=== PATIENT | female | born 1990 | race Caucasian/White ===

== ENCOUNTER 2018-08-13 17:30 | Emergency (ER) | payer MEDICAID, SELFPAY ==
[2018-08-13 17:31] VITALS: BP 135/81; PULSE 97; RESP 18; TEMP 36.4; O2SAT 96; BMI 25.7
--- NOTE | 2018-08-13 17:40 | RAD_ITS ---
STUDY: X-RAY - RIGHT HAND REASON FOR EXAM: Female, 28 years old. Pain at the base of the thumb TECHNIQUE: 3 view(s) of the hand. COMPARISON: None. FINDINGS: Normal radiocarpal articulation. Normal distal radioulnar joint. Normal visualized carpal bones. Normal carpal articulations Normal carpometacarpal articulation of the thumb. Normal second through fifth carpometacarpal joints. Normal metacarpi. Normal metacarpophalangeal joint of the thumb. Normal interphalangeal joint of the thumb. Normal proximal and distal phalanges of the thumb. Normal metacarpophalangeal joints of the second through fifth fingers. Normal proximal and distal interphalangeal joints of the second through fifth fingers. Normal phalanges of the second through fifth fingers. The soft tissue structures are unremarkable. RAD/Hand Min 3 Views IMPRESSION: No acute findings Electronically Signed: Kirill Rowe MD at 18:06 EDT , Service support ,
--- NOTE | 2018-08-13 18:41 | ED.VISSUMM ---
- ER Visit Summary Date of Service: 08/13/18 Chief Complaint: Right thumb injury History of Present Illness: The patient is a 28 F who complains of right thumb pain after a friend fell on her hand yesterday. She is right-hand dominant. She is able to move her thumb but has increased pain with axial loading. She denies paresthesias. Physical Examination: Vital signs unremarkable. Right upper extremity examination significant for tenderness of the right thumb, worse at the MCP joint. There is mild edema. There is no obvious joint laxity on testing. She has normal cap refill and sensation distally. Full range of motion is noted. Test Results: Right hand x-rays are unremarkable. Emergency Department Course and Treatment: Patient was placed in a thumb spica Velcro splint. If not improved she is to follow-up with orthopedics. Treatment Plan: [] Disposition: Discharge Impression: Right thumb sprain This note was generated with [employer] dictation software. It may contain incorrect words, spelling, and punctuation that were not noted in review of the chart prior to signing ED Disposition - Plan for ED Patient: Chief Complaint: Upper Extremity Injury Referrals: Trevon Morales MD [Primary Care Provider] -
--- NOTE | 2018-08-13 18:42 | ED.DEP ---
ED Disposition - Plan for ED Patient: Disposition: Home or Assisted Living Chief Complaint: Upper Extremity Injury Instructions: ED Sprain Finger Referrals: Erwin Toledo DO [STAFF PHYSICIAN] - 10-14 Days if not better
== END 2018-08-13 18:59 | disposition home or self-care (01) ==
PROVIDERS: Emergency Provider Emergency Medicine; Family Provider Family Medicine; PCP Family Medicine
DX: S63.601A Unspecified sprain of right thumb, initial encounter (principal); Z79.51 Long term (current) use of inhaled steroids; W50.0XXA Accidental hit or strike by another person, initial encounter; Y93.89 Activity, other specified; Y92.89 Other specified places as the place of occurrence of the external cause; Y99.8 Other external cause status
CPT/HCPCS: 73130; 99282

== ENCOUNTER 2020-04-27 19:25 | Emergency (ER) | payer MEDICAID, SELFPAY ==
[2020-04-27 19:27] VITALS: BP 146/74; PULSE 112; RESP 14; TEMP 36.6; O2SAT 98; BMI 28.3
[2020-04-27 19:44] VITALS: TEMP 37.1
--- NOTE | 2020-04-27 20:08 | RAD_ITS ---
STUDY: X-RAY CHEST REASON FOR EXAM: Female, 30 years old. Cough. Sore throat. Sinus congestion. TECHNIQUE: Single AP portable view of the chest. COMPARISON: October 08, 2014. FINDINGS: The lungs are well-expanded. There is patchy infiltrate in the left lung base. The lungs appear otherwise clear. There is no demonstrated pleural abnormality. Normal size heart. Normal mediastinum and ilan. Normal visualized pulmonary arteries. Normal visualized aortic arch and descending thoracic aorta. Normal visualized thoracic spine. Normal visualized ribs, clavicles, and shoulders. There is no demonstrated abnormality of the visualized soft tissue structures of the upper abdomen. RAD/Chest 1 View (Portable) IMPRESSION: Left lower lobe infiltrate. Electronically Signed: Colin Veras DO at 20:29 EDT Tel [phone], Service support ,
[2020-04-27 20:35] LABS: Absolute Lymphocyte Count 0.93 X10^3/uL (0.83-4.51); Basophil# 0.02 X10^3/uL; Basophil% 0.1 % (0-1); Hematocrit 42.9 % (37-47); Hemoglobin 13.9 g/dL (12.0-15.0); Lymphocyte # 0.93 X10^3/ul (4.0); Lymphocyte % 6.6 % (19-41); Mean Corp Hgb Conc 32.4 g/dL (32-36); Mean Corpuscular Hgb 27.5 pg (27.0-32.0); Mean Platelet Vol. 9.6 fl (6.2-12.0); Monocyte# 1.03 X10^3/uL; Monocyte% 7.4 % (0-10); NRBC Flagged by Analyzer 0 % (0-5); Neutrophil # 11.96 X10^3/uL (2.7-7.7); Neutrophil % 85.5 % (47-70); Platelet Count 326 K/mm3 (150-450); RBC Distribution Width SD 40.5 fl (35.1-43.9); Red Blood Count 5.05 M/mm3 (4.2-5.4)
--- NOTE | 2020-04-27 20:43 | ED.VIS.GEN ---
History of Present Illness Chief Complaint: Cough Detail of Chief Complaint: Cough, rhinorrhea and sore throat Informant: Patient, Significant Other Onset: - April 25 Context: Sudden Onset Timing: Continuous Quality: Upper respiratory with cough and congestion Location: Upper respiratory Current Severity: Mild Maximum Severity: Moderate Worsened by: Nothing Relieved by: Nothing Associated Symptoms: Upper respiratory Narrative: Patient is a 30-year-old who went out this past weekend to family gatherings. She did not wear a mask. She is unaware of anyone that was COVID positive. She presents with documented temperature to 100.8, rhinorrhea, congestion and cough. She complains of aches as well as mild headache. She denies photophobia, neck pain or neck stiffness. She denies chest pain. She denies nausea, vomiting or diarrhea. She denies joint swelling or pain. She denies dysuria, frequency, urgency or hematuria. She denies paresthesia, anesthesia motor aches. She denies discoloration of her extremities. She is a smoker. She does admit to drinking. Prior similar symptoms: No Recent Illness/Hospitalization: No - Past Medical History (1) No significant past medical history Status: Acute Past Medical History - Allergies and Home Meds Allergies/Adverse Reactions: Allergies hydrocodone bitartrate [From Vicodin] Allergy (Severe, Verified 04/27/20 19:27) Hives promethazine HCl [From Phenergan] Allergy (Severe, Verified 04/27/20 19:27) Swelling codeine Allergy (Mild, Verified 04/27/20 19:27) heart palpations NUTS Allergy (Severe, Uncoded 04/27/20 19:27) Anaphylaxis Primary Care Physician: Trevon Morales MD [Primary Care Provider] - Prior records reviewed: Yes Past Medical History: None Surgical History: noncontributory Lives: Spouse/ Significant Other Smoking Status: Current every day smoker Alcohol: Rare Drugs: None Review of Systems General: Reports: Chills, Fever, Malaise. Denies: Subjective, Sweats Eyes: Denies: Visual changes - bilaterally, Blurred Vision - bilaterally ENT: Reports: Rhinorrhea, Sore throat. Denies: Bilateral ear pain Cardiovascular: Denies: Chest pain, Palpitations, Heart racing Respiratory: Reports: Cough. Denies: Dyspnea, Sputum, Dyspnea on exertion Gastrointestinal: Denies: Abdominal pain, Nausea, Vomiting, Diarrhea, Melena, Hematochezia Genitourinary: Denies: Dysuria, Hematuria, Frequency Musculoskeletal: Reports: Myalgias. Denies: Arthralgias, Neck pain, Back pain, Swelling, Extremity Pain, -, - Skin: Denies: Rash, Wounds Neurological: Denies: Headache, Weakness, Numbness Endocrine: Denies: Polyuria, Polydipsia Hematologic: Denies: Easy bruising, Easy bleeding Physical Exam Vital Signs/Narrative: Vital Signs Temp Pulse Resp BP Pulse Ox 04/27/20 19:44 98.7 F 04/27/20 19:27 97.8 F 112 H 14 146/74 H 98 Inital Vital Signs reviewed: Yes General: Well nourished, Well developed, No Acute Distress Head: Normocephalic, Atraumatic Eyes: Perrl, EOMI. Negative for: Pale conjunctiva, Scleral icterus ENT: Moist mucous membranes, TM's clear, Nasal congestion. Negative for: Sinus tenderness Neck: Supple, Nontender Cardiovascular: Regular rate, Regular rhythm, No murmurs, Normal S1, Normal S2 Respiratory: No distress, CTA bilaterally, Chest nontender Abdomen: Soft, Nontender, Nondistended, Normal bowel sounds Back: Nontender, Normal Inspection Extremities: Nontender, No edema Skin: Normal color, No rash Neurological: Alert, Oriented x3, Cranial nerves II-XII grossly intact, Normal Strength, Normal Sensation Psychological: Normal affect, Normal Mood Diagnostic/Tx/Re-eval Chest X-Ray - ED: 1 View, Read by ED Physician, Normal, Heart, Lungs, Mediastinum, Bony Structures, No Acute Disease, - - Interpreted by me at 2019 Impressions Chest X-Ray 04/27/20 20:08 IMPRESSION: Left lower lobe infiltrate. Electronically Signed: Colin Veras DO at 20:29 EDT Tel [phone], Service support , 04/27/20 20:08 Chest 1 View (Portable) [RAD] Stat Laboratory Results 04/27/20 04/27/20 20:00 20:00 WBC 14.0 H RBC 5.05 Hgb 13.9 Hct 42.9 MCV 85.0 MCH 27.5 MCHC 32.4 RDW Std Deviation 40.5 RDW Coeff of Gladis 13.0 Plt Count 326 MPV 9.6 Immature Gran % (Auto) 0.400 Neut % (Auto) 85.5 H Lymph % (Auto) 6.6 L Alexander % (Auto) 7.4 Eos % (Auto) 0.0 Baso % (Auto) 0.1 Absolute Neuts (auto) 12.0 H Absolute Lymphs (auto) 0.93 Nucleated RBC % 0 Sodium 136 Potassium 3.3 L Chloride 105 Carbon Dioxide 23.0 Anion Gap 8 BUN 6 L Creatinine 0.75 Estim Creat Clear Calc 106.66 Est GFR (MDRD) Af Amer 117 Est GFR (MDRD) Non-Af 97 BUN/Creatinine Ratio 8.0 L Glucose 136 H Calcium 8.8 Total Bilirubin 0.40 AST 9 L ALT 17 Alkaline Phosphatase 90 Total Protein 7.8 Albumin 3.2 Globulin 4.6 H Albumin/Globulin Ratio 0.7 L X-ray and laboratory tests are unremarkable. Blood sugar slightly up at 136. COVID test is pending. Patient was discharged to home with appropriate home-going instructions. - Medical Decision Making Diagnosis includes viral upper restaurant infection, COVID infection, pneumonia. Will obtain chest x-ray and appropriate blood work including test for COVID. ED Disposition - Plan for ED Patient: Disposition: Home or Assisted Living Diagnosis: Suspected COVID-19 virus infection Instructions: ED Upper Resp Infec No Abx Tx Referrals: Trevon Morales MD [Primary Care Provider] - As Needed Additional Instructions: Your COVID test should be completed early tomorrow morning. If test is positive you will be notified. Self quarantine until you are informed of your results. It is in your best interest to stop smoking. It is also in your best interest to wear a mask when you go outside.
[2020-04-27 20:55] LABS: ALB/GLOB Ratio 0.7 RATIO (0.9-2.4); AST(SGOT) 9 U/L (15-37); Alanine Aminotransfer ALT/SGPT 17 U/L (13-56); Albumin, Serum 3.2 g/dL (3.2-5.0); Alkaline Phosphatase 90 U/L (45-117); Anion Gap 8 (5-15); BUN 6 mg/dL (7-18); Calcium,Total 8.8 mg/dL (8.5-10.1); Chloride 105 mmol/L (98-107); Creatinine, Serum 0.75 mg/dL (0.55-1.02); EST Glomerular Filtration Rate 97 mL/min (>60); Est Glom Filt Rate - Afr Amer 117 mL/min (>60); Estimated Creatinine Clearance 106.66 ml/min; Globulin 4.6 g/dL (2.2-4.2); Glucose 136 mg/dL (74-106); Potassium 3.3 mmol/L (3.5-5.1); Protein, Total 7.8 g/dL (6.4-8.2); Sodium Level 136 mmol/L (136-145)
[2020-04-27 21:02] LABS: Lactic Acid 0.7 mmol/L (0.4-1.9)
--- NOTE | 2020-04-27 21:49 | ED.VISSUMM ---
- ER Visit Summary Date of Service: 04/27/20 Chief Complaint: [] History of Present Illness: The patient is a 30 F [] Physical Examination: [] Test Results: [] Emergency Department Course and Treatment: [] Treatment Plan: [] Disposition: [] Impression: [] This note was generated with [employer] dictation software. It may contain incorrect words, spelling, and punctuation that were not noted in review of the chart prior to signing ED Disposition - Plan for ED Patient: Disposition: Home or Assisted Living Diagnosis: Suspected COVID-19 virus infection, Pneumonia, community acquired Instructions: ED PNEUMONITIS Adult Prescriptions: Doxycycline 100 mg PO BID #14 cap Transmission Status: Pending to [facility] #30 Referrals: Trevon Morales MD [Primary Care Provider] - 3-5 Days Additional Instructions: Chest x-ray does reveal a pneumonia on the left side. Take antibiotics until gone. If you develop trouble breathing or have difficulty breathing return to the emergency department. Your COVID test should be completed early tomorrow morning. If test is positive you will be notified. Self quarantine until you are informed of your results. It is in your best interest to stop smoking. It is also in your best interest to wear a mask when you go outside.
[2020-04-27 22:00] VITALS: BP 127/70; PULSE 119; RESP 20; TEMP 37.2; O2SAT 99
[2020-04-27] MEDS: Doxycycline 100 MG CAPSULE PO (22:18)
--- NOTE | 2020-04-28 07:15 | ED.RN ---
PT NOTIFIED THAT COVID WAS NEGATIVE AND RHINOVIRUS WAS POSITIVE. INFORMED PER TO CONTINUE COURSE OF DOXYCYCLINE. PT VERBALIZED UNDERSTANDING OF RESULTS AND NO FURTHER QUESTIONS.
== END 2020-04-27 22:22 | disposition home or self-care (01) ==
PROVIDERS: Emergency Provider Emergency Medicine; PCP Family Medicine
DX: J18.9 Pneumonia, unspecified organism (principal); F17.200 Nicotine dependence, unspecified, uncomplicated; Z20.828 Contact with and (suspected) exposure to other viral communicable diseases
CPT/HCPCS: 36415; 71045; 80053; 83605; 85025; 87040; 87633; 87635; 94799; 99285; G2023; A4216; U0003

== ENCOUNTER 2020-09-30 21:55 | Emergency (ER) | payer MEDICAID, SELFPAY ==
[2020-09-30 21:56] VITALS: BP 141/78; PULSE 94; RESP 18; TEMP 36.1; O2SAT 100; BMI 26.6
[2020-09-30] MEDS: 0.9% Normal Saline 1,000 ML 999 ML IV (23:39)
[2020-09-30] MEDS: DiphenhydrAMINE 50 MG/ML Syringe 25 MG IV (23:39)
[2020-09-30] MEDS: Metoclopramide 10 MG/2 ML Vial IV (23:39)
[2020-09-30] MEDS: Ketorolac 30 MG/ML Syringe IV (23:39)
--- NOTE | 2020-10-01 00:34 | ED.VIS.GEN ---
History of Present Illness Chief Complaint: Headache Informant: Patient Onset: Today Context: Gradual Onset Current Severity: Moderate Maximum Severity: Moderate Narrative: Patient presents with migraine headache this started around 6 PM last evening. She states it was a gradual onset. She tried her amitriptyline and Fioricet without improvement. She does have light sensitivity. She denies vision change or vomiting. She denies recent head injury. She does have a history of similar headaches. - Past Medical History (1) Asthma Status: Chronic (2) Migraines Status: Chronic Past Medical History - Allergies and Home Meds Allergies/Adverse Reactions: Allergies hydrocodone bitartrate [From Vicodin] Allergy (Severe, Verified 04/27/20 19:27) Hives promethazine HCl [From Phenergan] Allergy (Severe, Verified 04/27/20 19:27) Swelling codeine Allergy (Mild, Verified 04/27/20 19:27) heart palpations NUTS Allergy (Severe, Uncoded 04/27/20 19:27) Anaphylaxis Primary Care Physician: Trevon Morales MD [Primary Care Provider] - Prior records reviewed: Yes Surgical History: noncontributory Lives: With Family Smoking Status: Current every day smoker Review of Systems General: Denies: Chills, Fever Eyes: Denies: Visual changes - bilaterally ENT: Denies: Bilateral ear pain Cardiovascular: Denies: Chest pain Respiratory: Denies: Dyspnea, Cough Gastrointestinal: Denies: Abdominal pain, Nausea, Vomiting Neurological: Reports: Headache. Denies: Weakness, Parasthesia Hematologic: Denies: Easy bruising, Easy bleeding Allergy: Denies: Uticaria Physical Exam Vital Signs/Narrative: Vital Signs Temp Pulse Resp BP Pulse Ox 09/30/20 21:56 97 F L 94 18 141/78 H 100 Inital Vital Signs reviewed: Yes General: Well nourished, Well developed Head: Normocephalic ENT: Moist mucous membranes Neck: Supple Cardiovascular: Regular rate, Regular rhythm Respiratory: No distress, CTA bilaterally Abdomen: Soft, Nontender Back: Nontender Extremities: Nontender Skin: Normal color, No rash Neurological: Alert, Oriented x3, Normal Strength, Normal Sensation Psychological: Normal affect Diagnostic/Tx/Re-eval - Medical Decision Making Patient was given Toradol, Reglan, Benadryl, and IV fluids. On repeat evaluation headache is significantly improved. She will be discharged home with family this time. ED Disposition - Plan for ED Patient: Disposition: Home or Assisted Living Diagnosis: Migraine Instructions: ED, Migraine (Classical) Referrals: Trevon Morales MD [Primary Care Provider] - 3-5 Days if not improving
[2020-10-01 00:44] VITALS: BP 126/51; PULSE 77; RESP 15; O2SAT 99
== END 2020-10-01 00:46 | disposition home or self-care (01) ==
PROVIDERS: Emergency Provider Emergency Medicine; PCP Family Medicine
DX: G43.909 Migraine, unspecified, not intractable, without status migrainosus (principal); J45.909 Unspecified asthma, uncomplicated; Z79.51 Long term (current) use of inhaled steroids; F17.200 Nicotine dependence, unspecified, uncomplicated
CPT/HCPCS: 96361; 96374; 96375; 99283; J7030; A4216

== ENCOUNTER 2021-10-16 22:21 | Inpatient (IN) | payer MEDICAID, SELFPAY ==
[2021-10-16] VITALS (10 sets, daily range): BP systolic 119–161; BP diastolic 63–91; PULSE 90–113; TEMP 37.4; O2SAT 98–99; BMI 33.4
[2021-10-16] MEDS: Lactated Ringers 1,000 ML 50 ML IV (22:35)
[2021-10-16 22:52] LABS: Absolute Lymphocyte Count 1.44 X10^3/uL (0.83-4.51); Absolute Neutrophil Count 16.5 X10^3/uL (2.0-7.7); Basophil# 0.03 X10^3/uL; Basophil% 0.2 % (0-1); Eosinophil# 0.02 X10^3/uL; Eosinophils% 0.1 % (0-5); Hematocrit 41.9 % (37-47); Hemoglobin 13.7 g/dL (12.0-15.0); Lymphocyte # 1.44 X10^3/ul (0.83-4.51); Lymphocyte % 7.3 % (19-41); Mean Corp Hgb Conc 32.7 g/dL (32-36); Mean Corpuscular Hgb 26.3 pg (27.0-32.0); Mean Corpuscular Volume 80.4 fL (81-99); Mean Platelet Vol. 9.1 fl (6.2-12.0); Monocyte# 1.53 X10^3/uL; Monocyte% 7.8 % (0-10); NRBC Flagged by Analyzer 0 % (0-5); Neutrophil # 16.52 X10^3/uL (2.7-7.7); Neutrophil % 84.1 % (47-70); POSITIVE DIFFERENTIAL YES; Platelet Count 353 K/mm3 (150-450); RBC Distribution Width CV 13.7 % (11.6-14.6); RBC Distribution Width SD 39.5 fl (35.1-43.9); Red Blood Count 5.21 M/mm3 (4.2-5.4); White Blood Count 19.6 K/mm3 (4.4-11.0)
[2021-10-16 22:55] LABS: Differential Indicated SCAN CRITERIA MET
[2021-10-16] MEDS: Oxytocin 30 units/NS 500 ml 30 UNITS/500 ML IV.SOLN 334 UNITS IV (22:56)
--- NOTE | 2021-10-16 23:05 | PCM.HP.OB ---
HPI - General General Date of Admission: 10/16/21 HPI Narrative URMILA LEACH, is a 31 F who presents at 38w1d in active labor. Upon arrival increased pain with contractions. complicated by chronic HTN well controlled without medication. Maternal Data Information TAD Calculator Estimated Delivery Date Method Current WG Current Estimate 10/29/21 Manual 38w 1d PFSH PFSH Home Medications albuterol sulfate [Ventolin HFA] 1 - 2 puff INHALATION Q6H PRN PRN 01/07/17 [History Last Taken Unknown] amitriptyline 25 mg PO QHS 09/30/20 [History Last Taken Unknown] [id number] 1 ea PO QHS 09/30/20 [History Last Taken Unknown] Allergy/AdvReac Type Severity Reaction Status Date / Time hydrocodone bitartrate Allergy Severe Hives Verified 10/16/21 22:46 [From Vicodin] promethazine HCl Allergy Severe Swelling Verified 10/16/21 22:46 [From Phenergan] codeine Allergy Mild heart Verified 10/16/21 22:46 palpations NUTS Allergy Severe Anaphylaxis Uncoded 10/15/21 18:08 Social History Smoking Status: Current every day smoker History Elective abortions Hx Para 1 Spontaneous abortions Hx # Term Pregnancies Ectopic pregnancies Hx # Pregnancies Multiple births # of living children Vital Signs Vital Signs Vital Signs: 10/16/21 22:30 10/16/21 22:35 10/16/21 22:40 Pulse Rate 99 109 H 106 H Blood Pressure BP Systolic BP Diastolic Pulse Ox 99 99 99 10/16/21 22:42 10/16/21 22:59 Pulse Rate 113 H 96 Blood Pressure 161/91 H 141/77 H BP Systolic 161 141 BP Diastolic 91 77 Pulse Ox Labs Labs Labs: Blood Type O POSITIVE Antibody Screen NEGATIVE Hct 41.9 % (37-47) Hgb 13.7 g/dL (12.0-15.0) Rhogam given: No GBS positive RPR negative Rubella Immune HBsAG negative HepC negative HIV nonreactive GC/CT negative Assessment & Plan (1) Active labor at term: (2) Chronic hypertension: (3) Asthma: (4) Migraines: PLAN: 1) Admit to labor and delivery 2) Routine labs 3) Continuous EFM 4) GBS prophylaxis 5) COVID screen 6) notified of admission
--- NOTE | 2021-10-16 23:05 | EX.PCM.OBRPT ---
Assessment & Plan (1) Vaginal delivery: (2) Precipitous delivery: Maternal Data Information TAD Calculator Estimated Delivery Date Method Current WG Current Estimate 10/29/21 Manual 38w 1d Vaginal Delivery Maternal Presentation Maternal Presentation: Active Labor and Spontaneous Rupture of Membranes Operative Information Date of Procedure: 10/16/21 Pre-Operative Diagnosis: Active labor Post-Operative Diagnosis: Surgery / Procedure Performed: Spontaneous Vaginal Delivery Type of Anesthesia: None Estimated Blood Loss: 350 ml Time of Delivery: 22:50 Findings Description of Procedure: Upon arrival, cervical exam anterior lip and strong urge to push. of viable female infant over intact perineum. APGARS 7,9. Infant head delivered with CAN x1, delivered through and body immediately forthcoming. placed on maternal abdomen, strong cry, mouth and nose suctioned for secretions. Pitocin started for active 3rd stage management. Placenta delivered via card, intact, 3 vessel cord. Perineum inspected and revealed intact. Vaginal sweep completed. Fundus firm, EBL 350ml. Sponge and instrument count correct. Mom and baby stable. Family bonding well. notified of delivery. Presentation: Vertex and DEBBIE Amniotic Fluid Description: Clear Placental Delivery Description: Spontaneous Placenta Disposition: [facility] Cord Vessel Description: 3 Vessels Cord Entanglement: Around neck x 1, loose Nuchal Cord Compression: Without compression A Gender: Female (1 minute): 7 (5 minute): 9 Delayed Cord Clamping: Yes Post Vaginal Delivery Medications Given After Delivery: IV Pitocin Complication Complications: None
[2021-10-16 23:31] LABS: Differential Comment SCANNED
[2021-10-16] MEDS: Ibuprofen 600 MG Tablet PO (23:42)
[2021-10-17] VITALS (15 sets, daily range): BP systolic 108–128; BP diastolic 57–69; PULSE 73–97; RESP 16–18; TEMP 36.2–36.7; O2SAT 97–98
--- NOTE | 2021-10-17 06:15 | NURSING ---
late entry due to unit emergency: Doyle Jimenez RN assuming care of pt at 1159
[2021-10-17 07:03] LABS: Hematocrit 39.8 % (37-47); Hemoglobin 12.9 g/dL (12.0-15.0); Mean Corp Hgb Conc 32.4 g/dL (32-36); Mean Corpuscular Hgb 26.2 pg (27.0-32.0); Mean Corpuscular Volume 80.9 fL (81-99); Mean Platelet Vol. 9.3 fl (6.2-12.0); Platelet Count 320 K/mm3 (150-450); RBC Distribution Width CV 13.6 % (11.6-14.6); RBC Distribution Width SD 39.8 fl (35.1-43.9); Red Blood Count 4.92 M/mm3 (4.2-5.4); White Blood Count 23.6 K/mm3 (4.4-11.0)
[2021-10-17] MEDS: Acetaminophen 500 MG Tablet 1000 MG PO (08:19)
[2021-10-17] MEDS: Ibuprofen 600 MG Tablet PO ×2 (10:30→16:31)
--- NOTE | 2021-10-17 11:39 | PN.OBGYN_ITS ---
Subjective Subjective Doing well per patient and nursing staff. Ambulating and taking PO without difficulty. Voiding and passing flatus. Pain controlled. , services for assistance. Denies headache, visual changes, chest pain, shortness of breath, leg pain or increased bleeding. Lochia normal. Objective Data Objective Data Vital Signs: Vital Signs Temp Pulse Resp BP Pulse Ox 97.6 F L 80 16 121/68 H 98 10/17/21 08:12 10/17/21 08:12 10/17/21 08:12 10/17/21 08:12 10/16/21 23:15 Oxygen Delivery Method Room Air Weight: 207 lb 3.752 oz Body Mass Index (BMI) 33.4 Intake & Output: Intake and Output for Last 24 Hours 10/15/21 10/16/21 10/17/21 23:59 23:59 23:59 Intake Total 437.57 / 437.57 333 / 333 Balance 437.57 / 437.57 333 / 333 Lab / Micro Data Result Diagrams: 10/17/21 06:42 Labs: Laboratory Results - last 24 hr 10/16/21 22:35: WBC 19.6 H, RBC 5.21, Hgb 13.7, Hct 41.9, MCV 80.4 L, MCH 26.3 L , MCHC 32.7, RDW Std Deviation 39.5, RDW Coeff of Gladis 13.7, Plt Count 353, MPV 9.1, Immature Gran % (Auto) 0.500, Neut % (Auto) 84.1 H, Lymph % (Auto) 7.3 L, [place] % (Auto) 7.8, Eos % (Auto) 0.1, Baso % (Auto) 0.2, Absolute Neuts (auto) 16.5 H, Absolute Lymphs (auto) 1.44, Nucleated RBC % 0, Differential Comment SCANNED, Diff Path Review February10/16/21 22:35: Blood Type O POSITIVE, Antibody Screen NEGATIVE 10/17/21 06:42: WBC 23.6 H, RBC 4.92, Hgb 12.9, Hct 39.8, MCV 80.9 L, MCH 26.2 L , MCHC 32.4, RDW Std Deviation 39.8, RDW Coeff of Glaids 13.6, Plt Count 320, MPV 9.3 Micro: Microbiology 10/16/21 23:25 Nasal Secretion SARS-CoV-2 Antigen (Rapid) - Final ROS Constitutional Constitutional: Reports systems reviewed and no addt'l complaints, except as documented; Denies headache(s) Eyes Eyes: Denies acute decrease in peripheral vision, blurry vision or change in vision ENT HEENT: Reports systems reviewed and no addt'l complaints, except as documented Cardiovascular Cardiovascular: Denies chest pain or dizziness Respiratory/Chest Respiratory/Chest: Denies cough, dyspnea, dyspnea on exertion, shortness of breath at rest or shortness of breath with exertion Gastrointestinal Gastrointestinal: Denies abdominal pain, diarrhea, nausea or vomiting Genitourinary Genitourinary: Denies abdominal discomfort Musculoskeletal Musculoskeletal: Denies limited range of motion Integumentary Integumentary: Reports systems reviewed and no addt'l complaints, except as documented Neurologic Neurologic: Reports systems reviewed and no addt'l complaints, except as documented Psychiatric Psychiatric: Reports systems reviewed and no addt'l complaints, except as d ocumented Endocrine Endocrinology: Reports systems reviewed and no addt'l complaints, except as documented Hematologic/Lymphatic Hematologic/Lymphatic: Reports systems reviewed and no addt'l complaints, except as documented Allergic/Immunologic Allergic/Immunologic: Reports systems reviewed and no addt'l complaints, except as documented Physical Exam Const alert and oriented x3 General Appearance: cooperative Orientation / Consciousness: awake, oriented to person, oriented to place and oriented to time Exam Limitations: no limitations HEENT normocephalic Head and Scalp: normal to inspection, normocephalic and atraumatic Face and Sinus: normal facial exam Eyes General Eye: normal appearance of both eyes Neck full ROM Chest Chest: symmetrical chest wall rise Resp normal respiratory effort and normal air movement Auscultation: clear to auscultation bilaterally Cardio regular rate, regular rhythm, S1 normal heart sound, S2 normal heart sound, no murmurs, no rub, no gallops and no clicks GI normal to inspection, nondistended, normoactive bowel sounds and non-tender appearance of the vagina normal Narrative: fundus firm 2 below U Bladder / Kidney Exam: no CVA tenderness Back/Spine normal ROM Extremity normal to inspection and full ROM Extremity Narrative: Hortencia's negative bilaterally Skin no rashes or lesions noted Neuro oriented x3, CN's II-XII intact bilaterally and moves all extremities Sensorium / Orientation: awake, alert and oriented to person Motor Exam: clonus absent Deep Tendon Reflexes: Rt Patellar (L4): 2+ and Lt Patellar (L4): 2+ Assessment & Plan (1) Asthma: (2) Vaginal delivery: COMMENT: PPD #1 (3) Precipitous delivery: (4) Chronic hypertension: PLAN: 1) Routine PP Care 2) H&H stable 3) BP normal, no signs of preeclampsia 4) Pain management 5) Planning D/C home tomorrow
--- NOTE | 2021-10-17 12:19 | OB.TRI.PN_ITS ---
Progress Notes Date of Service: 10/15/21 Progress Note: Presented to labor and delivery for leakage of fluid and possible rupture of membranes. No contractions. Laboratory Studies: Laboratory Tests 10/17/21 10/16/21 10/16/21 Range/Units 06:42 22:35 22:35 WBC 23.6 H 19.6 H (4.4-11.0) K/mm3 RBC 4.92 5.21 (4.2-5.4) M/mm3 Hgb 12.9 13.7 (12.0-15.0) g/dL Hct 39.8 41.9 (37-47) % MCV 80.9 L 80.4 L (81-99) fL MCH 26.2 L 26.3 L (27.0-32.0) pg MCHC 32.4 32.7 (32-36) g/dL RDW Std Deviation 39.8 39.5 (35.1-43.9) fl RDW Coeff of Gladis 13.6 13.7 (11.6-14.6) % Plt Count 320 353 (150-450) K/mm3 MPV 9.3 9.1 (6.2-12.0) fl Immature Gran % (Auto) 0.500 (0.0-0.9) % Neut % (Auto) 84.1 H (47-70) % Lymph % (Auto) 7.3 L (19-41) % [place] % (Auto) 7.8 (0-10) % Eos % (Auto) 0.1 (0-5) % Baso % (Auto) 0.2 (0-1) % Absolute Neuts (auto) 16.5 H (2.0-7.7) X10^3/uL Absolute Lymphs (auto) 1.44 (0.83-4.51) X10^3/uL Nucleated RBC % 0 (0-5) % Differential Comment SCANNED Diff Path Review May foll Blood Type O POSITIVE Antibody Screen NEGATIVE Assessment & Plan (1) Vaginal discharge: (2) False labor: PLAN: ROM plus negative D/C home
[2021-10-18 02:13] VITALS: BP 114/55; PULSE 72; RESP 16; TEMP 36.8; O2SAT 97
[2021-10-18] MEDS: Ibuprofen 600 MG Tablet PO (02:18)
[2021-10-18] MEDS: Acetaminophen 500 MG Tablet 1000 MG PO (05:11)
[2021-10-18 08:00] VITALS: BP 118/61; PULSE 85; RESP 14; TEMP 36.1; O2SAT 96
--- NOTE | 2021-10-18 08:13 | PCM.PN.OB ---
Subjective Subjective Patient seen at bedside. Feeling good. Denies any pain. Ambulating and voiding without difficulty. Both breast and bottle feeding. Denies any headache, vision changes, SOB or CP. Desires discharge home today. Objective Data Objective Data Vital Signs: Vital Signs Temp Pulse Resp BP Pulse Ox 98.2 F 72 16 114/55 L 97 10/18/21 02:13 10/18/21 02:13 10/18/21 02:13 10/18/21 02:13 10/18/21 02:13 Oxygen Delivery Method Room Air Weight: 207 lb 3.752 oz Body Mass Index (BMI) 33.4 Intake & Output: Intake and Output for Last 24 Hours 10/16/21 10/17/21 10/18/21 23:59 23:59 23:59 Intake Total 437.57 / 437.57 333 / 333 Balance 437.57 / 437.57 333 / 333 Lab / Micro Data Result Diagrams: 10/17/21 06:42 Micro: Microbiology 10/16/21 23:25 Nasal Secretion SARS-CoV-2 Antigen (Rapid) - Final ROS Eyes Eyes: Denies blurry vision, change in vision or spots in vision ENT HEENT: Denies dizziness or headache(s) Cardiovascular Cardiovascular: Denies abdominal pain, chest pain or dyspnea Respiratory/Chest Respiratory/Chest: Denies cough, dyspnea, shortness of breath at rest or shortness of breath with exertion Gastrointestinal Gastrointestinal: Denies abdominal pain, diarrhea or vomiting Genitourinary Genitourinary: Denies change in urinary stream, difficulty urinating or dysuria Musculoskeletal Musculoskeletal: Reports none Integumentary Integumentary: Denies rash Neurologic Neurologic: Denies dizziness, headache(s), memory loss or weakness Physical Exam Const alert and no apparent distress General Appearance: cooperative and comfortable Exam Limitations: no limitations HEENT normocephalic Eyes General Eye: normal appearance of both eyes Neck full ROM General: normal visual inspection Chest Chest: symmetrical chest wall rise Resp normal respiratory effort and normal air movement Effort and Inspection: symmetric chest movement Auscultation: clear to auscultation bilaterally Cardio regular rate and regular rhythm GI normal to inspection, nondistended, normoactive bowel sounds Back/Spine normal ROM Extremity full ROM and no calf tenderness General Extremity: normal exam except as noted Skin no rashes or lesions noted Neuro CN's II-XII intact bilaterally Psych mental status grossly normal Assessment & Plan (1) Precipitous delivery: (2) Vaginal delivery: COMMENT: PPD #1 PLAN: PPD 2 Routine care Pain control D/C home with follow up in office
--- NOTE | 2021-10-18 08:16 | PCM.DC ---
Discharge Instructions Diet Discharge Diet: No restrictions Activity May resume sexual activity in: 6-8 weeks Weight Bearing Status: Weight bearing as tolerated Dressing / Incision Call your doctor if you observe: Fever of 101 or Higher, Inability to urinate, Using more than 1 pad per hour, Shortness of breath, Chest pain, Calf discomfort and Uncontrolled pain Follow Up Care When: 2 weeks virtual visit/ 6 weeks in office Test Results: Test results from this visit will be discussed in further detail at your follow-up appointment, if applicable. Discharge Plan Admission Admit Date/Time: 10/16/21 22:21 Primary Reason for Your Visit: Labor and delivery Attending Provider: Nichole Campos Primary Care Provider: Trevon Morales Discharge Orders/Prescriptions Prescriptions: Continued [id number] 1 mg Tablet 1 tab PO DAILY RF: 0 Discontinued aspirin 81 mg Capsule 81 mg PO DAILY RF: 0 famotidine [Pepcid] 20 mg Tablet 20 mg PO BID RF: 0 Referrals / Follow Up: Trevon Morales MD [Primary Care Provider] - Disposition Disposition (needs filled in before D/C Order can be placed): Home, Self Care
[2021-10-19 10:46] LABS: Pathologist Review Reviewed
== END 2021-10-18 11:55 | disposition home or self-care (01) | DRG 560 ==
LOC: WPOUT 22:22 → WP 22:23 → WPOUT 22:35 → WP 22:35
PROVIDERS: Admitting Provider Advanced Practice Midwife; PCP Family Medicine; Visit Provider Advanced Practice Midwife
DX: O42.92 Full-term premature rupture of membranes, unspecified as to length of time between rupture and onset of labor (principal); Z37.0 Single live birth; O10.92 Unspecified pre-existing hypertension complicating childbirth; O99.354 Diseases of the nervous system complicating childbirth; G43.909 Migraine, unspecified, not intractable, without status migrainosus; O62.3 Precipitate labor; O69.81X0 Labor and delivery complicated by cord around neck, without compression, not applicable or unspecified; Z3A.38 38 weeks gestation of pregnancy; O99.52 Diseases of the respiratory system complicating childbirth; J45.909 Unspecified asthma, uncomplicated; O99.334 Smoking (tobacco) complicating childbirth; F17.200 Nicotine dependence, unspecified, uncomplicated
CPT/HCPCS: 59025; 59050; 84112; 85025; 85027; 86850; 86900; 86901; 87426; 99218; J7120; G0378